=== PATIENT | male | born 1985 | race Caucasian/White ===

== ENCOUNTER 2020-02-24 08:34 | Outpatient (CLI) | payer BC, SELFPAY ==
--- NOTE | ~2020-02-24 | US_ITS ---
US scrotum doppler INDICATION: Palpable lump in between testicles. TECHNIQUE: Testicular sonogram utilizing grayscale and color Doppler FINDINGS: There are hard multiple punctate calcifications in both testicles, consistent with testicul ar microlithiasis. The right testes measures 3.6 x 2.6 x 4.2 cm centimeters, and the left testis marychuy ures 4 x 2.6 x 3 cm cm. There is normal vascular flow to both testes. There is a 2 mm right epididymal cysts. There are small hydroceles. IMPRESSION: 1. Testicular microlithiasis. Consider follow-up ultrasound if patient has increased risk of germ ce ll tumor such as family history, undescended testicles or orchidopexy. 2: Small hydroceles. 3:2 mm right epididymal cysts. Reviewed, dictated and finalized at location A. IMPRESSION: 1. Testicular microlithiasis. Consider follow-up ultrasound if patient has inc reased risk of germ cell tumor such as family history, undescended testicles or orchidopexy. 2: Small hydroceles. 3:2 mm right epididymal cysts.
[2020-02-24 09:46] LABS: Blood Urea Nitrogen 12 mg/dL (9-20); Calcium 9.2 mg/dL (8.4-10.2); Carbon Dioxide 26 mmol/L (22-30); Chloride 103 mmol/L (98-107); Cholesterol 233 mg/dL (0-200); Estimated Glomerular Filt Rate > 60; Glucose 105 mg/dL (75-110); HDL Direct 43 mg/dL; Potassium 4.1 mmol/L (3.4-5.0); Sodium 138 mmol/L (137-145); Triglycerides 267 mg/dL (<150)
[2020-02-24 09:57] LABS: LDL Cholesterol Direct 112 mg/dL
[2020-02-24 10:17] LABS: Prostate Specific Antigen 0.7 ng/mL (< OR = 4.0)
== END 2020-02-24 08:35 | disposition home or self-care (01) ==
LOC: ANHIMG 08:43
PROVIDERS: PCP Family Medicine; Visit Provider Nurse Practitioner Family
DX: Z13.1 Encounter for screening for diabetes mellitus (principal); Z80.42 Family history of malignant neoplasm of prostate; Z13.220 Encounter for screening for lipoid disorders; N50.3 Cyst of epididymis; N43.3 Hydrocele, unspecified
CPT/HCPCS: 36415; 76870; 80048; 80061; 84153; 84443; 93976; G0103